=== PATIENT | female | born 1970 | race Caucasian/White ===

== ENCOUNTER 2022-02-10 06:24 | Day surgery (SDC) | payer OTHER ==
[~2022-02-10] VITALS: Ht 167.6 cm; Wt 77.1 kg
[~2022-02-10 06:24] MED LIST: GABAPENTIN100 M2 PO
== END 2022-02-10 18:10 | disposition home or self-care (01) ==
LOC: CIR.AMB 06:24
PROVIDERS: ATTEND Surgery
DX: D05.12 Intraductal carcinoma in situ of left breast (principal); R59.0 Localized enlarged lymph nodes; Z17.0 Estrogen receptor positive status [ER+]; Z20.822 Contact with and (suspected) exposure to COVID-19; Z42.1 Encounter for breast reconstruction following mastectomy
CPT/HCPCS: 19303; 19357; 38525; 78195; A9541; C1889

== ENCOUNTER 2022-03-10 13:20 | Outpatient (CLI) | payer OTHER | END 2022-03-10 13:21 | disposition home or self-care (01) | LOC: LAB 13:20 | PROVIDERS: ATTEND Surgery | DX: N61.1 Abscess of the breast and nipple (principal) ==

== ENCOUNTER 2024-10-17 05:21 | Day surgery (SDC) | payer OTHER ==
[2024-10-16 10:53] VITALS: BP 148/83
[~2024-10-17] VITALS: Ht 167.6 cm; Wt 78.0 kg
[~2024-10-17 05:21] MED LIST changes: +ARIMIDEX 1 MG; +NEURONTIN800 MG; +OMEGA 3; +VITAMIN D
[2024-10-17] MEDS ORDERED: CLINDAMYCIN PHOSPHATE 150 MG/ML (900mg) ONE (06:56)
[2024-10-17] MEDS ORDERED: BUPIVACAINE HCL/MPF 0.5% 30ML VIAL ONE (07:06)
[2024-10-17] MEDS ORDERED: POVIDONE-IODINE SCRUB 118 ML BOTT TOP ONE (07:06)
[2024-10-17] MEDS ORDERED: POVIDONE-IODINE 118 ML BOTT TOP ONE (07:06)
[2024-10-17] MEDS ORDERED: LIDOCAINE HCL 1%/EPINEPHRINE 20ML VIAL IJ ONE (07:06)
[2024-10-17] MEDS ORDERED: CEFAZOLIN SODIUM 1,000 MG VIAL ONE (07:07)
[2024-10-17] MEDS ORDERED: EPINEPHRINE HCL/PF 1 MG/ML AMPUL ONE (07:07)
[2024-10-17] MEDS ORDERED: GENTAMICIN SULFATE 40 MG/ML VIAL ONE (07:07)
[2024-10-17] MEDS ORDERED: TRANEXAMIC ACID 100MG/1ML (1000MG) AMPUL IV ONE (07:30)
[2024-10-17] MEDS ORDERED: MORPHINE SULFATE 4 MG/ML VIAL IV ONE (10:45)
[2024-10-17] MEDS ORDERED: ONDANSETRON HCL 2 MG/ML VIAL IV PRN (12:45)
[2024-10-17] MEDS ORDERED: MORPHINE SULFATE 4 MG/ML VIAL IV PRN (12:45)
== END 2024-10-17 14:10 | disposition home or self-care (01) ==
LOC: CIR.AMB 05:21
PROVIDERS: ATTEND Plastic Surgery
DX: N65.1 Disproportion of reconstructed breast (principal); Z90.13 Acquired absence of bilateral breasts and nipples; C50.912 Malignant neoplasm of unspecified site of left female breast